=== PATIENT | female | born 1995 | race Caucasian/White ===

== ENCOUNTER 2017-05-25 20:45 | Emergency (ER) | payer BC, OTHER ==
[~2017-05-25] VITALS: Ht 162.6 cm; Wt 61.1 kg
[2017-05-25 20:48] VITALS: TEMP 36.8; Ht 162.6 cm; Wt 61.1 kg
[2017-05-25] MEDS ORDERED: ACETAMINOPHEN 500 MG TAB PO STA (21:32)
--- NOTE | 2017-05-25 21:32 | EMERGENCY ROOM VISIT NOTE ---
History Report prepared by Kathryn: Sloan Borjas Under the Supervision of: Dr. Claudia Naik D.O. First contact with patient: 21:00 Chief Complaint: NECK PAIN Stated Complaint: EXTREMELY STIFF NECK, SORE THROAT, COUGH History of Present Illness The patient is a 21 year old female who presents to the Emergency Room with complaints of constant neck pain that started today. She reports her pain as a 9 /10 in severity. The patient states that she started to experience intermittent nausea four days ago, but admits it had resolved the day after. She states that two days ago she started to experience cold like symptoms, including a stuffy nose, rhinorrhea, cough, congestion, a headache, sore throat, sore eyes, a productive cough, and a fever. She states that she has been checking her temperature, which had been 100.9 and 100.4 yesterday. She states that her fever resolved last night and she woke up feeling relieved this morning. The patient states that she suddenly started to experience severe neck pain and stiffness. She states that she has had neck stiffness before due to her history of Lyme's disease, but states that it has never been as severe. The patient states that she had a strep test done, but reports that the results were negative. The patient states that she has taken Mucinex and Ibuprofen for her fever symptoms yesterday. She admits to a history of bronchitis and colds that she had been treated with V packs for. 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 The patient denies vomiting, diarrhea, being around someone sick, and rash. Source of History: patient Onset: today Position: neck Symptom Intensity: 9/10 Timing: constant Modifying Factors (Relieving): ibuprofen, other (Mucinex) Associated Symptoms: + fevers, + headache, + sorethroat, + cough, + nausea, No vomiting, No diarrhea, No rash Review of Systems See HPI for pertinent positives & negatives. A total of 10 systems reviewed and were otherwise negative. Past Medical & Surgical Medical Problems: (1) Bronchitis Family History Patient reports no known family medical history. Social History Smoking Status: Never Smoker Marital Status: in relationship Occupation Status: employed Current/Historical Medications Scheduled Guaifenesin Ext Rel (Mucinex Ext Rel), 600 MG PO Q12 Scheduled PRN Ibuprofen (Advil), 400-600 MG PO Q6H PRN for Headache or Pain Physical Exam Vital Signs Date Time Temp Pulse Resp B/P (MAP) Pulse Ox O2 Delivery O2 Flow Rate FiO2 05/25/17 23:51 71 18 136/80 98 Room Air 05/25/17 22:28 70 20 132/77 99 Room Air 05/25/17 20:48 36.8 98 18 139/89 98 Room Air Physical Exam GENERAL: anxious, alert, well appearing, well nourished, no distress, non-toxic EYE EXAM: normal conjunctiva, PERRL and EOM's grossly intact OROPHARYNX: no exudate, no erythema, lips, buccal mucosa, and tongue normal and mucous membranes are moist, no tonsillar hypertrophy NECK: supple, no nuchal rigidity, no adenopathy, non-tender, no midline tenderness/step off LUNGS: Clear to auscultation. Normal chest wall mechanics, no w/r/r HEART: no murmurs, S1 normal and S2 normal ABDOMEN: abdomen soft, non-tender, normo-active bowel sounds, no masses, no rebound or guarding. BACK: Back is symmetrical on inspection and there is no deformity, no midline tenderness, no CVA tenderness. SKIN: no rashes and no bruising UPPER EXTREMITIES: upper extremities are grossly normal. LOWER EXTREMITIES: No pitting edema. NEURO EXAM: Normal sensorium, cranial nerves II-XII grossly intact, normal speech, no gross weakness of arms, no gross weakness of legs. Gross sensation intact. Medical Decision & Procedures Laboratory Results 05/25/17 22:25 Red Blood Count 4.75, Mean Corpuscular Volume 85.3, Mean Corpuscular Hemoglobin 27.6, Mean Corpuscular Hemoglobin Concent 32.3, Mean Platelet Volume 10.4, Neutrophils (%) (Auto) 64.0, Lymphocytes (%) (Auto) 25.9, Monocytes (%) (Auto) 8.0, Eosinophils (%) (Auto) 1.7, Basophils (%) (Auto) 0.2, Neutrophils # (Auto) 5.28, Lymphocytes # (Auto) 2.14, Monocytes # (Auto) 0.66, Eosinophils # (Auto) 0.14, Basophils # (Auto) 0.02 05/25/17 22:25 Test 05/25/17 22:25 White Blood Count 8.26 K/uL (4.8-10.8) Red Blood Count 4.75 M/uL (4.2-5.4) Hemoglobin 13.1 g/dL (12.0-16.0) Hematocrit 40.5 % (37-47) Mean Corpuscular Volume 85.3 fL (80-100) Mean Corpuscular Hemoglobin 27.6 pg (25-34) Mean Corpuscular Hemoglobin Concent 32.3 g/dl (32-36) Platelet Count 167 K/uL (130-400) Mean Platelet Volume 10.4 fL (7.4-10.4) Neutrophils (%) (Auto) 64.0 % Lymphocytes (%) (Auto) 25.9 % Monocytes (%) (Auto) 8.0 % Eosinophils (%) (Auto) 1.7 % Basophils (%) (Auto) 0.2 % Neutrophils # (Auto) 5.28 K/uL (1.4-6.5) Lymphocytes # (Auto) 2.14 K/uL (1.2-3.4) Monocytes # (Auto) 0.66 K/uL (0.11-0.59) Eosinophils # (Auto) 0.14 K/uL (0-0.5) Basophils # (Auto) 0.02 K/uL (0-0.2) RDW Standard Deviation 45.9 fL (36.4-46.3) RDW Coefficient of Variation 14.7 % (11.5-14.5) Immature Granulocyte % (Auto) 0.2 % Immature Granulocyte # (Auto) 0.02 K/uL (0.00-0.02) Anion Gap 8.0 mmol/L (3-11) Est Creatinine Clear Calc Drug Dose 102.5 ml/min Estimated GFR () 132.1 Estimated GFR (Non- 113.9 BUN/Creatinine Ratio 12.0 (10-20) Calcium Level 9.1 mg/dl (8.5-10.1) Total Bilirubin 0.4 mg/dl (0.2-1) Aspartate Amino Transf (AST/SGOT) 16 U/L (15-37) Alanine Aminotransferase (ALT/SGPT) 20 U/L (12-78) Alkaline Phosphatase 53 U/L (45-117) Total Protein 7.7 gm/dl (6.4-8.2) Albumin 4.1 gm/dl (3.4-5.0) Globulin 3.6 gm/dl (2.5-4.0) Albumin/Globulin Ratio 1.1 (0.9-2) Human Chorionic Gonadotropin, Qual NEG (NEG) Monoscreen NEG (NEG) Laboratory results per my review. Medications Administered Medications (Trade) Dose Ordered Sig/Nestor Route Start Time Stop Time Status Last Admin Dose Admin Acetaminophen (Tylenol Tab) 1,000 mg NOW STAT PO 05/25/17 21:32 05/25/17 21:34 DC 05/25/17 22:26 1,000 MG Ketorolac Tromethamine (Toradol Inj) 30 mg NOW STAT IV 05/25/17 23:43 05/25/17 23:44 DC 05/25/17 23:48 30 MG ED Course 2114: The patient was evaluated in room C08. A complete history and physical exam was performed. 2131: Tylenol Tab 1000 mg PO. 2342: Toradol Injection 30 mg IV. 2332: I reevaluated the patient and she is feeling better after Tylenol. I discussed lumbar puncture at bedside, including risks vs benefits and diagnosis of meningitis. She verbalized understanding and refused procedure. I discussed the findings and the treatment plan with the patient. She verbalizes agreement and understanding. The patient was discharged home. 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 Pt's sx in general were improved today with exception of neck pain. No fever on arrival here, no leukocytosis. Pt improved with tylenol here. Discussed at length ddx. Doubt deep space infection/MEAT PACKER, strep at urgent care negative and PE not consistent with strep, low suspicion for meningitis/encephalitis. No evidence of bacteremia/sepsis. No recent trauma. Pt aware of all results. Lyme machine broken and no results available until tomorrow. Discussed with her sx to watch/return for, and that she could return at any time and if symptoms warranted, possible LP may be discussed with her again. She and verbalized understanding of this. Medication Reconcilliation Current Medication List: was personally reviewed by me Blood Pressure Screening Patient's blood pressure: Elevated blood pressure Blood pressure disposition: Elevated BP felt to be situational Impression Primary Impression: URI (upper respiratory infection) Additional Impression: Neck pain Scribe Attestation The scribe's documentation has been prepared under my direction and personally reviewed by me in its entirety. I confirm that the note above accurately reflects all work, treatment, procedures, and medical decision making performed by me. Departure Information Dispostion Home / Self-Care Referrals No Doctor, Assigned (PCP) Forms HOME CARE DOCUMENTATION FORM, IMPORTANT VISIT INFORMATION, WORK / SCHOOL INSTRUCTIONS Patient Instructions My [facility] Additional Instructions Please rest, drink plenty of fluids, you may use tylenol and ibuprofen for pain as needed. If you have any worsening headache or neck pain, have persistent fevers/chills, develop rash, vomiting, dizziness, vision changes, worsening sore throat, trouble swallowing, cough or trouble breathing, or you have any other new or concerning symptoms, please return to the emergency room. Problem Qualifiers Primary Impression: URI (upper respiratory infection) URI type: unspecified URI Qualified Codes: J06.9 - Acute upper respiratory infection, unspecified
[2017-05-25] MEDS ORDERED: IBUP-1050 PO (21:33)
[2017-05-25] MEDS ORDERED: GUAI1TAB55 PO (21:33)
[2017-05-25 22:45] LABS: BASO % 0.2 %; BASO ABS # 0.02 K/uL (0-0.2); COMPLETE YES; EOS % 1.7 %; HEMATOCRIT 40.5 % (37-47); IG% 0.2 %; LYMPH % 25.9 %; LYMPH ABS # 2.14 K/uL (1.2-3.4); MEAN CELL VOLUME 85.3 fL (80-100); MEAN CORPUSCULAR HEMOGLOBIN 27.6 pg (25-34); MEAN CORPUSCULAR HGB CONC 32.3 g/dl (32-36); MEAN PLATELET VOLUME 10.4 fL (7.4-10.4); PLATELET COUNT 167 K/uL (130-400); RED BLOOD COUNT 4.75 M/uL (4.2-5.4); WHITE BLOOD COUNT 8.26 K/uL (4.8-10.8)
[2017-05-25 23:06] LABS: PREG INTERNAL NEGATIVE QC NEG CLEAR BACKGROUND; PREG INTERNAL POSITIVE QC POS CONTROL LINE
[2017-05-25 23:12] LABS: CALCIUM 9.1 mg/dl (8.5-10.1); CREATININE 0.75 mg/dl (0.60-1.20); POTASSIUM 3.4 mmol/L (3.5-5.1)
[2017-05-25 23:15] LABS: ALB/GLOB RATIO 1.1 (0.9-2)
[2017-05-25] MEDS ORDERED: KETOROLAC TROMETHAMINE 30 MG/ML VIAL IV STA (23:43)
[2017-05-25 23:51] VITALS: BP 136/80; PULSE 71; O2SAT 98
== END 2017-05-26 00:08 | disposition home or self-care (01) ==
LOC: C.EDB 20:47 → C.EDC 05-26 00:08
DX: J06.9 Acute upper respiratory infection, unspecified (principal); M54.2 Cervicalgia

== ENCOUNTER → 2018-01-24 | Outpatient (CLI) | payer OTHER ==
[~2018-01-24] MED LIST: GUAI1TAB55 PO; IBUP-1050 PO
[2018-01-24 16:32] LABS: BASO % 0.4 %; BASO ABS # 0.03 K/uL (0-0.2); EOS % 4.5 %; EOS ABS # 0.37 K/uL (0-0.5); HEMATOCRIT 39.9 % (37-47); IG# 0.02 K/uL (0.00-0.02); LYMPH % 39.3 %; LYMPH ABS # 3.23 K/uL (1.2-3.4); MEAN CELL VOLUME 87.5 fL (80-100); MEAN CORPUSCULAR HEMOGLOBIN 28.5 pg (25-34); MEAN CORPUSCULAR HGB CONC 32.6 g/dl (32-36); MEAN PLATELET VOLUME 11.2 fL (7.4-10.4); MONO % 6.1 %; NEUT % 49.5 %; NEUT ABS # 4.07 K/uL (1.4-6.5); PLATELET COUNT 191 K/uL (130-400); WHITE BLOOD COUNT 8.22 K/uL (4.8-10.8)
[2018-01-24 16:53] LABS: ALBUMIN 3.9 gm/dl (3.4-5.0); ALT/SGPT 21 U/L (12-78); AST/SGOT 15 U/L (15-37); BLOOD UREA NITROGEN 7 mg/dl (7-18); CARBON DIOXIDE 27 mmol/L (21-32); CREATININE 0.63 mg/dl (0.60-1.20); GLUCOSE 87 mg/dl (70-99); POTASSIUM 3.7 mmol/L (3.5-5.1); SODIUM 138 mmol/L (136-145)
[2018-01-24 17:03] LABS: ALKALINE PHOSPHATASE 52 U/L (45-117); TOTAL PROTEIN 6.9 gm/dl (6.4-8.2)
== END | disposition home or self-care (01) ==
LOC: C.LABBFT 14:53
PROVIDERS: ATTEND Physician Assistant Medical
DX: E04.1 Nontoxic single thyroid nodule (principal); D64.9 Anemia, unspecified

== ENCOUNTER → 2018-02-01 | Outpatient (CLI) | payer OTHER ==
--- NOTE | 2018-02-01 11:14 | DIAGNOSTIC IMAGING REPORT ---
THYROID ULTRASOUND CLINICAL HISTORY: Thyroid nodule. COMPARISON STUDY: None. TECHNIQUE: Sonography of the thyroid gland was performed. FINDINGS: The right thyroid lobe measures 4.6 x 1.5 x 1.6 cm. The left lobe measures 4.2 x 1.2 x 1.2 cm. The gland is homogeneous. Note is made of a round 1.1 x 0.8 x 0.9 cm hypoechoic nodule with hypoechoic rim within the anterior aspect of the midpole of the left thyroid lobe which likely reflects the palpable abnormality. This contains echogenic foci with suspected common tail artifact. IMPRESSION: 1.1 cm left lobe thyroid nodule which likely reflects the palpable abnormality. This contains echogenic foci which favors colloid. However, microcalcifications could appear similar. Therefore, consideration might be given to further evaluation with ultrasound-guided fine needle aspiration. Electronically signed by: Jonathan Soni M.D. 02/01/2018 11:12 AM Dictated Date/Time: 02/01/2018 11:09 AM
== END | disposition home or self-care (01) ==
LOC: C.ULTR 10:31
PROVIDERS: ATTEND Physician Assistant Medical
DX: E04.1 Nontoxic single thyroid nodule (principal)

== ENCOUNTER → 2018-02-08 | Outpatient (CLI) | payer OTHER ==
--- NOTE | 2018-02-08 10:54 | DIAGNOSTIC IMAGING REPORT ---
ULTRASOUND GUIDED FINE NEEDLE ASPIRATION OF LEFT LOBE THYROID NODULE CLINICAL HISTORY: THYROID NODULE COMPARISON STUDY: Thyroid ultrasound February 01, 2018. PROCEDURE: Sonography of the thyroid gland again demonstrated a 1.1 cm left lobe thyroid nodule. This was targeted for fine needle aspiration. The procedure, risks and benefits were discussed with the patient. The patient agreed to the procedure and informed written consent was obtained. The procedure was performed by Dr. Soni following a timeout. Skin was prepped and draped in sterile fashion and local anesthesia was achieved with 1% lidocaine. Under direct ultrasound guidance, 2 25-gauge fine needle aspirations were performed. Samples were deemed preliminarily adequate by pathology. The patient tolerated the procedure well and no immediate complications were evident. IMPRESSION: Ultrasound guided fine-needle aspiration of 1.1 cm left lobe thyroid nodule. Electronically signed by: Jonathan Soni M.D. 02/08/2018 10:52 AM Dictated Date/Time: 02/08/2018 10:51 AM
== END | disposition home or self-care (01) ==
LOC: C.ULTR 09:53
PROVIDERS: ATTEND Internal Medicine
DX: E04.1 Nontoxic single thyroid nodule (principal)

== ENCOUNTER → 2018-02-13 | Outpatient (CLI) | payer OTHER | END | disposition home or self-care (01) | LOC: C.PAPS 17:44 | PROVIDERS: ATTEND Physician Assistant | DX: Z12.4 Encounter for screening for malignant neoplasm of cervix (principal); R87.610 Atypical squamous cells of undetermined significance on cytologic smear of cervix (ASC-US) ==